=== PATIENT | female | born 2000 | race Caucasian/White ===

== ENCOUNTER 2024-01-30 07:39 | Emergency (ER) | payer SELFPAY ==
[2024-01-30] MEDS ORDERED: KETOROLAC 30 MG/ML INJ ONE (08:09)
--- NOTE | 2024-01-30 08:19 | RAD REPORT ---
EXAM DESCRIPTION: CT - Head Brain Wo Cont - 01/30/2024 8:11 am CLINICAL HISTORY: head injury COMPARISON: No comparisons TECHNIQUE: All CT scans are performed using dose optimization technique as appropriate and may inclu de automated exposure control or mA/KV adjustment according to patient size. FINDINGS: No intracranial hemorrhage, hydrocephalus or extra-axial fluid collection.No areas of brai n edema or evidence of midline shift. The paranasal sinuses and mastoids are clear. The calvarium is intact. IMPRESSION: No acute intracranial abnormality.
--- NOTE | 2024-01-30 08:36 | ER ---
Nurse's Notes [facility] Name: Elise Bhandari Age: 23 yrs Sex: Female : 2000 Arrival Date: 01/30/2024 Time: 07:39 Bed 13 Private MD: Diagnosis: Nose Pain;Headache Presentation: 01/29 07:49 Chief complaint: Patient states: DOVE IN SHALLOW POOL YESTERDAY AND HIT BRIDGE OF NOSE db ON FLOOR OF POOL. NOW HAS HEAD PAIN AND NOSE PAIN. Coronavirus screen: Client denies travel out of the [place] in the last 14 days. At this time, the client does not indicate any symptoms associated with coronavirus-19. Ebola Screen: Patient negative for fever greater than or equal to 101.5 degrees Fahrenheit, and additional compatible Ebola Virus Disease symptoms Patient denies exposure to infectious person. Patient denies travel to an Ebola-affected area in the 21 days before illness onset. No symptoms or risks identified at this time. Initial Sepsis Screen: Does the patient meet any 2 criteria? No. Patient's initial sepsis screen is negative. Does the patient have a suspected source of infection? No. Patient's initial sepsis screen is negative. Risk Assessment: Do you want to hurt yourself or someone else? Patient reports no desire to harm self or others. Onset of symptoms was January 29, 2024. 07:49 Method Of Arrival: Ambulatory db 07:49 Acuity: MARLENI 4 db Triage Assessment: 07:51 General: Appears in no apparent distress. comfortable, Behavior is calm, cooperative. db Pain: Complains of pain in head, face and nose. EENT: Nares are clear. Neuro: Level of Consciousness is awake, alert, obeys commands, Oriented to person, place, time, situation, Speech is normal, Facial symmetry appears normal. Cardiovascular: No deficits noted. Respiratory: Airway is patent Respiratory effort is even, unlabored, Respiratory pattern is regular, symmetrical. GI: No deficits noted. No signs and/or symptoms were reported involving the gastrointestinal system. : No deficits noted. No signs and/or symptoms were reported regarding the genitourinary system. Derm: No deficits noted. No signs and/or symptoms reported regarding the dermatologic system. Injury Description: Abrasion sustained to nose Bruise sustained to nose. 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 - Infectious Disease History:: Denies. - Social history:: Smoking status: Reported history of juuling and/or vaping. Screenin:53 [facility] ED Fall Risk Assessment (Adult) History of falling in the last 3 months, db including since admission No falls in past 3 months (0 pts) Confusion or Disorientation No (0 pts) Intoxicated or Sedated No (0 pts) Impaired Gait No (0 pts) Mobility Assist Device Used No (0 pt) Altered Elimination No (0 pt) Score/Fall Risk Level 0 - 2 = Low Risk Oriented to surroundings, Maintained a safe environment. Abuse screen: Denies threats or abuse. Denies injuries from another. Nutritional screening: No deficits noted. Tuberculosis screening: No symptoms or risk factors identified. Assessment: 07:52 Reassessment: SEE TRIAGE FOR INITIAL ASSESSMENT. db 08:43 Reassessment: Patient appears in no apparent distress at this time. Patient and/or db family updated on plan of care and expected duration. Pain level reassessed. Patient is alert, oriented x 3, equal unlabored respirations, skin warm/dry/pink. General: Appears in no apparent distress. comfortable, Behavior is calm, cooperative. Vital Signs: 07:49 BP 112 / 76; Pulse 84; Resp 16; Temp 99; Pulse Ox 100% ; Weight 86.18 kg; Height 5 ft. db 8 in. ; 07:49 Body Mass Index 28.89 (86.18 kg, 172.72 cm) db ED Course: 07:42 Patient arrived in ED. rg4 07:45 Richard Quintanilla MD is Attending Physician. ec2 07:49 Perlita Rivera, MACIEL is Primary Nurse. db 07:50 Triage completed. db 07:51 Arm band placed on Patient placed in an exam room. db 07:53 Patient has correct armband on for positive identification. Bed in low position. Call db light in reach. Side rails up X 1. Pulse ox on. NIBP on. Warm blanket given. 07:53 Provided Education on: PAIN CONTROL. db 08:13 CT Head Brain wo Cont In Process Unspecified. EDMS 08:14 Patient moved back from [place]. db 08:43 No provider procedures requiring assistance completed. Patient did not have IV access db during this emergency room visit. Administered Medications: 08:25 Drug: Ketorolac IM 30 mg IM once Route: IM; Site: right deltoid; db 08:43 Follow up: Response: No adverse reaction db Medication: 08:43 VIS not applicable for this client. db Outcome: 08:35 Discharge ordered by . ec2 08:43 Discharged to home ambulatory, with family, db 08:43 Condition: stable 08:43 Discharge instructions given to patient, Instructed on discharge instructions, follow up and referral plans. 08:44 Patient left the ED. db Signatures: Dispatcher [employer] Shelia Toscano rg4 Perlita Rivera RN RN Richard Osborn MD MD ec2 Corrections: (The following items were deleted from the chart) 07:51 07:49 Onset of symptoms was January 30, 2024 db db
--- NOTE | 2024-01-30 08:36 | EDPHYS ---
Physician Documentation [facility] Name: Elise Bhandari Age: 23 yrs Sex: Female : 2000 Arrival Date: 01/30/2024 Time: 07:39 Bed 13 Private MD: ED Physician Richard Quintanilla HPI: 01/29 07:54 This 23 yrs old Female presents to ER via Ambulatory with complaints of Nose ec2 Pain. 07:54 Patient arrives today for evaluation of nose pain and headache. Patient states that she ec2 dove into a shallow pool and subsequently injured her face. Patient with no LOC, no blood thinners, no neck pain. Patient reports no other traumas or injuries.. 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 - Infectious Disease History:: Denies. - Social history:: Smoking status: Reported history of juuling and/or vaping. ROS: 07:54 Constitutional: as per hpi ec2 Exam: 07:54 Constitutional: GEN: No acute distress HEENT: -Head: no deformities -Eyes: EOMI. ec2 Nose: Contusion noted to the bridge of the nose, no deformities, straight, no evidence of airway obstruction. CV: regular rate LUNGS: no respiratory distress ABD: non-tender SKIN: no wounds appreciated MSK: No C/T/L spine deformities RUE w/o bony deformity LUE w/o bony deformity RLE w/o bony deformity LLE w/o bony deformity NEURO: moves all extremities equally, GCS 15 (E4, V5, M6) Vital Signs: 07:49 BP 112 / 76; Pulse 84; Resp 16; Temp 99; Pulse Ox 100% ; Weight 86.18 kg; Height 5 ft. db 8 in. ; 07:49 Body Mass Index 28.89 (86.18 kg, 172.72 cm) db MDM: 07:51 Patient medically screened. ec2 07:54 Data reviewed: vital signs. ED course: Patient arrives today due to concern for facial ec2 pain after diving into the pool. Examination remarkable for MSK findings as above. Will obtain CT scan of the head to evaluate for intracranial injury as well as nasal bone fracture.. 08:34 ED course: CT scan shows no acute traumatic process. Will discharge home. Return ec2 precautions given. . 01/29 07:54 Order name: CT Head Brain wo Cont; Complete Time: 08:34 ec2 Administered Medications: 08:25 Drug: Ketorolac IM 30 mg IM once Route: IM; Site: right deltoid; db 08:43 Follow up: Response: No adverse reaction db Disposition Summary: 01/30/24 08:35 Discharge Ordered Notes: Location: Home ec2 Condition: Stable ec2 Diagnosis - Nose Pain ec2 - Headache ec2 Followup: ec2 - With: Private Physician - When: - Reason: Re-evaluation by your physician Discharge Instructions: - Discharge Summary Sheet ec2 - Head Injury, Adult, Gadf-[id number] ec2 Forms: - Work release form bd - Medication Reconciliation Form ec2 - Thank You Letter ec2 - Antibiotic Education ec2 - Prescription Opioid Use ec2 - Patient Portal Instructions ec2 - Leadership Thank You Letter ec2 Signatures: Dispatcher [employer] Perlita Jimenez, RN RN Richard Osborn MD MD ec2
[2024-01-30 17:04] VITALS: BP 112/76; TEMP 99; O2SAT 100
== END 2024-01-30 08:44 | disposition home or self-care (01) ==
LOC: ER 07:39
DX: J34.89 Other specified disorders of nose and nasal sinuses (principal); R51.9 Headache, unspecified
CPT/HCPCS: 70450; 96372; 99284

== ENCOUNTER 2025-06-16 22:25 | Emergency (ER) | payer SELFPAY ==
[2025-06-16] MEDS ORDERED: KETOROLAC 30 MG/ML INJ ONE (22:52)
[2025-06-16] MEDS ORDERED: HYDROCODONE/APAP 5/325 MG TAB ONE (22:52)
--- NOTE | 2025-06-17 00:33 | ER ---
Nurse's Notes [facility] Name: Elise Bhandari Age: 24 yrs Sex: Female : 2000 Arrival Date: 06/16/2025 Time: 22:25 Bed 20 Private MD: Diagnosis: Cervicalgia Presentation: 06/16 22:39 Chief complaint: Patient states: PT STATES SHE FELL APPROX 10 FLIGHT OF STAIRS ON br2 MONDAY. PT DENIES LOC. C/O NECK PAIN THAT RADIATES TO BILATERAL SHOULDERS AND MID BACK. Coronavirus screen: Client denies travel out of the [place] in the last 14 days. Ebola Screen: Patient denies exposure to infectious person. Initial Sepsis Screen: Does the patient meet any 2 criteria? No. Patient's initial sepsis screen is negative. Does the patient have a suspected source of infection? No. Patient's initial sepsis screen is negative. Risk Assessment: Do you want to hurt yourself or someone else? Patient reports no desire to harm self or others. Onset of symptoms was June 14, 2025. 22:39 Method Of Arrival: Ambulatory br2 22:39 Acuity: MARLENI 3 br2 Triage Assessment: 22:47 General: Appears uncomfortable, Behavior is calm, cooperative. Pain: Complains of pain br2 in back of neck and posterior chest Pain currently is 10 out of 10 on a pain scale. Historical: - Allergies: 22:47 No Known Allergies; br2 - PMHx: 22:47 None; br2 - PSHx: 22:47 HERNIA; br2 - Immunization history:: Adult Immunizations not up to date. - Infectious Disease History:: Denies. - Social history:: Smoking status: Reported history of juuling and/or vaping. Patient uses alcohol, occasionally. Patient/guardian denies using street drugs. Screenin:08 [facility] ED Fall Risk Assessment (Adult) History of falling in the last 3 months, kd3 including since admission No falls in past 3 months (0 pts) Confusion or Disorientation No (0 pts) Intoxicated or Sedated No (0 pts) Impaired Gait No (0 pts) Mobility Assist Device Used No (0 pt) Altered Elimination No (0 pt) Score/Fall Risk Level 0 - 2 = Low Risk Maintained a safe environment. Abuse screen: Denies threats or abuse. Denies injuries from another. Nutritional screening: No deficits noted. Tuberculosis screening: No symptoms or risk factors identified. Assessment: 23:07 General: Appears in no apparent distress. Behavior is calm, cooperative. Pain: kd3 Complains of pain in back of neck. Neuro: Level of Consciousness is awake, alert, obeys commands, Oriented to person, place, time, situation. Cardiovascular: Patient's skin is warm and dry. Respiratory: Airway is patent Trachea midline Respiratory effort is even, unlabored, Respiratory pattern is regular, symmetrical. Vital Signs: 22:39 BP 109 / 78; Pulse 80; Resp 18; Temp 97.1; Pulse Ox 100% on R/A; Weight 86.18 kg; br2 Height 5 ft. 8 in. ; Pain 10/10; 23:09 BP 110 / 81; Pulse 68; Resp 18; Pulse Ox 98% on R/A; kd3 06/17 00:01 BP 102 / 62; Pulse 57; Resp 18; Pulse Ox 99% on R/A; kd3 06/16 22:39 Body Mass Index 28.89 (86.18 kg, 172.72 cm) br2 06/16 22:39 Pain Scale: Adult br2 ED Course: 06/16 22:27 Patient arrived in ED. jj6 22:27 She[facility] Jacobson [facility]-C [facility]. kb 22:27 Arsenio Davis MD is Attending Physician. kb 22:35 Gale Neri, MACIEL is Primary Nurse. kd3 22:47 Triage completed. br2 22:53 CT Head C Spine In Process Unspecified. EDMS 23:08 Arm band placed on right wrist. kd3 23:08 Patient has correct armband on for positive identification. Provided Education on: kd3 Toradol injection . 06/17 00:58 No provider procedures requiring assistance completed. Patient did not have IV access kd3 during this emergency room visit. Administered Medications: 06/16 23:03 Drug: Ketorolac IM 30 mg IM once Route: IM; Site: right gluteus; kd3 23:03 Drug: HYDROcodone-acetaminophen PO 5 mg-325 mg 1 tabs PO once Route: PO; kd3 Medication: 23:09 VIS not applicable for this client. kd3 Outcome: 06/17 00:33 Discharge ordered by . kb 00:58 Discharged to home ambulatory, kd3 00:58 Condition: stable 00:58 Discharge instructions given to patient, Instructed on discharge instructions, follow up and referral plans. medication usage, Demonstrated understanding of instructions, follow-up care, medications, Prescriptions given X 2, 00:58 Patient left the ED. kd3 Signatures: Dispatcher [employer] EDMN Sheila Jacobson, ACUTE CARE ASSISTANT-C ACUTE CARE ASSISTANT-Manuela Alvarez jj6 Gale Neri RN RN kd3 Adrianne Barrera RN RN br2
--- NOTE | 2025-06-17 00:33 | EDPHYS ---
Physician Documentation [facility] Name: Elise Bhandari Age: 24 yrs Sex: Female : 2000 Arrival Date: 06/16/2025 Time: 22:25 Bed 20 Private MD: ED Physician Arsenio Davis HPI: 06/16 22:36 This 24 yrs old Female presents to ER via Unassigned with complaints of Neck Injury. kb 22:36 Pt is a 24 year old female who presents for neck pain and headache that started kb Monday after falling down a flight of stairs at work. Denies loc. States the pain in her neck has persisted. Denies any other injuries. . Historical: - Allergies: 22:47 No Known Allergies; br2 - PMHx: 22:47 None; br2 - PSHx: 22:47 HERNIA; br2 - Immunization history:: Adult Immunizations not up to date. - Infectious Disease History:: Denies. - Social history:: Smoking status: Reported history of juuling and/or vaping. Patient uses alcohol, occasionally. Patient/guardian denies using street drugs. ROS: 22:34 Constitutional: As per HPI kb Exam: 22:34 Constitutional: This is a well developed, well nourished patient who is awake, alert, kb and in no acute distress. Head/Face: Normocephalic, atraumatic. ENT: Moist Mucous membranes Cardiovascular: Regular rate Respiratory: Respirations even and unlabored. No increased work of breathing. Talking in full sentences Skin: Warm, dry with normal turgor. Normal color. MS/ Extremity: Pulses equal, no cyanosis. Neurovascular intact. Full, normal range of motion. Neuro: Awake and alert, GCS 15, oriented to person, place, time, and situation. 22:34 Neck: C-spine: vertebral tenderness, that is moderate, diffusely, Vital Signs: 22:39 BP 109 / 78; Pulse 80; Resp 18; Temp 97.1; Pulse Ox 100% on R/A; Weight 86.18 kg; br2 Height 5 ft. 8 in. ; Pain 10/10; 23:09 BP 110 / 81; Pulse 68; Resp 18; Pulse Ox 98% on R/A; kd3 06/17 00:01 BP 102 / 62; Pulse 57; Resp 18; Pulse Ox 99% on R/A; kd3 06/16 22:39 Body Mass Index 28.89 (86.18 kg, 172.72 cm) br2 06/16 22:39 Pain Scale: Adult br2 MDM: 06/16 22:27 Medical Screening Exam initiated kb 22:36 Differential diagnosis: fracture, strain, contusion, head injury. Data reviewed: vital kb signs, nurses notes. 06/17 00:32 Counseling: I had a detailed discussion with the patient and/or guardian regarding the kb historical points, exam findings, and any diagnostic results supporting the discharge/admit diagnosis, radiology results, the need for outpatient follow up, a family practitioner, to return to the emergency department if symptoms worsen or persist or if there are any questions or concerns that arise at home. 06/16 22:32 Order name: CT Head C Spine kb Administered Medications: 06/16 23:03 Drug: Ketorolac IM 30 mg IM once Route: IM; Site: right gluteus; kd3 23:03 Drug: HYDROcodone-acetaminophen PO 5 mg-325 mg 1 tabs PO once Route: PO; kd3 Disposition: 06/17 06:39 Co-signature as Attending Physician, Arsenio Davis MD I agree with the assessment sp4 and plan of care. I reviewed the patient's care provided by the Advanced Practice Provider and agree with the diagnosis and treatment plan. 06:39 Chart complete. sp4 Disposition Summary: 06/17/25 00:33 Discharge Ordered Notes: Location: Home kb Condition: Stable kb Diagnosis - Cervicalgia kb Followup: kb - With: Emergency Department - When: As needed - Reason: Worsening of condition Followup: kb - With: Private Physician - When: 2 - 3 days - Reason: Recheck today's complaints, Continuance of care, Re-evaluation by your physician Discharge Instructions: - Discharge Summary Sheet kb - Musculoskeletal Pain kb Forms: - Medication Reconciliation Form kb - Antibiotic Education kb - Prescription Opioid Use kb - Patient Portal Instructions kb - Leadership Thank You Letter kb Prescriptions: - Diclofenac Sodium 75 mg Oral tablet, delayed release (enteric coated) - take 1 tablet ORAL route 2 times per day As needed; 30 tablet; Refills: 0, kb Product Selection Permitted - orphenadrine citrate 100 mg Oral Tablet Sustained Release - take 1 tablet ORAL route 2 times per day As needed; 20 tablet; Refills: 0, kb Product Selection Permitted Signatures: Dispatcher [employer] EDSheila Judge, Gale Mazariegos RN RN kd3 Arsenio Davis MD MD sp4 Adrianne Barrera RN RN br2 Corrections: (The following items were deleted from the chart) 06/16 22:38 22:36 Pt is a 24 year old female who presents for neck pain and headache that started kb Monday after falling down a flight of stairs at work. Denies loc. States the pain in her neck has persisted.. kb
--- NOTE | 2025-06-17 01:32 | RAD REPORT ---
INDICATION: Head and neck pain COMPARISON: May 27, 2025 TECHNIQUE: Unenhanced CT of the head and cervical spine was performed per protocol. Multiplanar reconstructions were provided. Dose reduction techniques were utilized for this exam including automated exposure control, adjustmen ts to mA and/or kV according to patient's size, and the use of iterative reconstruction techniques. FINDINGS: CT Head: ACUTE INFARCTION: No. HEMORRHAGE: No. MASS: No. BRAIN: Moncao-white matter differentiation is maintained. VENTRICLES / EXTRA-AXIAL SPACES: No hydrocephalus. BONES: Unremarkable. PARANASAL SINUSES: Unremarkable. CT Cervical Spine: VERTEBRA: No acute fracture or malalignment. ALIGNMENT: Straightening of the normal cervical lordotic curvature as positioned. DISC SPACES: Mild degenerative disc disease at C5-C6 with right paracentral disc protrusion at this l evel. FACET JOINTS: Unremarkable. SPINAL CANAL: No high-grade bony canal stenosis. SOFT TISSUES: Unremarkable. OTHER: Lung apices are clear. IMPRESSION: CT Head: No acute intracranial abnormality. CT Cervical Spine: No acute osseous findings. Electronically signed by: Brennan Kuo DO 06/17/2025 12:16 AM CDT NR Due to temporary technical issues with the PACS/[employer]and[employer] reporting system, reports are being don d by the in-house radiologist without review as a courtesy to ensure prompt reporting the interpreting radiologist is fully responsible for the content of the report. Transcribed Date/Time: 06/17/2025 1:32 AM
[2025-06-17 08:40] VITALS: TEMP 97.1
[2025-06-17 08:43] VITALS: BP 102/62; O2SAT 99
== END 2025-06-17 00:58 | disposition home or self-care (01) ==
LOC: ER 22:25
DX: M54.2 Cervicalgia (principal); R51.9 Headache, unspecified
CPT/HCPCS: 70450; 72125

== ENCOUNTER 2025-08-02 14:13 | Emergency (ER) | payer SELFPAY ==
[2025-08-02 15:18] LABS: Urine Culture Reflex Order REFLEXED; Urine Microscopic Reflex YN NO UMIC
--- NOTE | 2025-08-02 15:32 | EDPHYS ---
Physician Documentation [facility] Name: Elise Bhandari Age: 24 yrs Sex: Female : 2000 Arrival Date: 08/02/2025 Time: 14:13 Bed 11 Private MD: ED Physician Iron Spear HPI: 08/02 14:36 This 24 yrs old Female presents to ER via Ambulatory with complaints of Nausea. sb4 14:36 Nausea x 2 days. Took a home test last night and was positive, wants sb4 confirmation today. States her last menstrual period was about 1 month ago. . Denies any burning with urination, pelvic cramping, vaginal discharge, spotting. 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 - Infectious Disease History:: Denies. - Social history:: Smoking status: Reported history of juuling and/or vaping. ROS: 14:36 Constitutional: Negative for fever, chills, and weight loss, sb4 14:36 Abdomen/GI: Positive for nausea, 14:36 All other systems are negative, Exam: 14:36 Constitutional: This is a well developed, well nourished patient who is awake, alert, sb4 and in no acute distress. Head/Face: Normocephalic, atraumatic. Eyes: Extra-ocular motions intact. Periorbital areas with no swelling, redness, or edema. ENT: Mucous membranes moist. Respiratory: No increased work of breathing, no retractions or nasal flaring. Skin: Warm, dry with normal turgor. Normal color with no rashes, no lesions, and no evidence of cellulitis. Vital Signs: 14:18 BP 129 / 75; Pulse 71; Resp 17; Temp 98.2; Pulse Ox 100% ; Weight 83.91 kg; Height 5 me1 ft. 8 in. ; 15:17 BP 104 / 63; Pulse 75; Resp 18; Pulse Ox 99% ; rg5 14:18 Body Mass Index 28.13 (83.91 kg, 172.72 cm) me1 MDM: 14:16 Medical Screening Exam initiated sb4 15:32 Data reviewed: vital signs, nurses notes, lab test result(s), and as a result, I will sb4 discharge patient. Counseling: I had a detailed discussion with the patient and/or guardian regarding the historical points, exam findings, and any diagnostic results supporting the discharge/admit diagnosis, lab results, the need for outpatient follow up, an OB/Gyne specialist, to return to the emergency department if symptoms worsen or persist or if there are any questions or concerns that arise at home. 08/02 14:28 Order name: Test, Urine; Complete Time: 15:20 sb4 08/02 14:28 Order name: UA Rfx Kg Cult if indicated; Complete Time: 15:36 sb4 08/02 15:38 Order name: Urine Culture EDMS Administered Medications: No medications were administered Disposition Summary: 08/02/25 15:32 Discharge Ordered Notes: Location: Home sb4 Problem: new sb4 Symptoms: are unchanged sb4 Condition: Stable sb4 Diagnosis - Encounter for test, result positive sb4 Followup: sb4 - With: Private Physician - When: 1 week - Reason: Further diagnostic work-up, Recheck today's complaints, Re-evaluation by your physician Discharge Instructions: - Discharge Summary Sheet sb4 - First Trimester of , Uqbt-ka-Cudy sb4 Forms: - Patient Portal Instructions sb4 - Leadership Thank You Letter sb4 Signatures: Dispatcher [employer] Morenita Moeller PAPadminiC PA-C sb4 aRdha Gomez, RN RN me1 Corrections: (The following items were deleted from the chart) 14:28 14:28 Test, Urine+UC.LAB.BRZ ordered. EDMS EDMS 14:28 14:28 UA Rfx Kg Cult if indicated+U.LAB.BRZ ordered. EDMS EDMS
--- NOTE | 2025-08-02 15:32 | ER ---
Nurse's Notes [facility] [place] Name: Elise Bhandari Age: 24 yrs Sex: Female : 2000 Arrival Date: 08/02/2025 Time: 14:13 Bed 11 Private MD: Diagnosis: Encounter for test, result positive Presentation: 08/02 14:18 Chief complaint: Patient states: had positive home test. LMP 07/02/25. Reports me1 nausea for 2-3 days. Would like confirmation of . Coronavirus screen: Vaccine status: Patient reports being unvaccinated. Ebola Screen: No symptoms or risks identified at this time. Initial Sepsis Screen: Does the patient meet any 2 criteria? No. Patient's initial sepsis screen is negative. Does the patient have a suspected source of infection? No. Patient's initial sepsis screen is negative. Risk Assessment: Do you want to hurt yourself or someone else? Patient reports no desire to harm self or others. Onset of symptoms was July 31, 2025. 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 - Infectious Disease History:: Denies. - Social history:: Smoking status: Reported history of juuling and/or vaping. Screenin:11 [facility] ED Fall Risk Assessment (Adult) History of falling in the last 3 months, rg5 including since admission No falls in past 3 months (0 pts) Confusion or Disorientation No (0 pts) Intoxicated or Sedated No (0 pts) Impaired Gait No (0 pts) Mobility Assist Device Used Yes (1 pt) Altered Elimination No (0 pt) Score/Fall Risk Level 0 - 2 = Low Risk Oriented to surroundings, Maintained a safe environment. 15:18 Abuse screen: Denies threats or abuse. Denies injuries from another. Nutritional rg5 screening: No deficits noted. Tuberculosis screening: No symptoms or risk factors identified. Assessment: 15:11 General: Appears in no apparent distress. Behavior is calm, cooperative, appropriate rg5 for age. Neuro: Level of Consciousness is awake, alert, obeys commands. GI: Abdomen is round non-distended, Reports nausea. :. EENT: No signs and/or symptoms were reported regarding the EENT system. Derm: Skin is intact, Skin is dry, Skin is normal, Skin temperature is warm. Musculoskeletal: Circulation, motion, and sensation intact. Range of motion: intact in all extremities. 15:18 Pain: Denies pain. Cardiovascular: Denies chest pain, Patient's skin is warm and dry. rg5 Rhythm is regular. Respiratory: Airway is patent Trachea midline Respiratory effort is even, unlabored, Respiratory pattern is regular, symmetrical. Vital Signs: 14:18 BP 129 / 75; Pulse 71; Resp 17; Temp 98.2; Pulse Ox 100% ; Weight 83.91 kg; Height 5 me1 ft. 8 in. ; 15:17 BP 104 / 63; Pulse 75; Resp 18; Pulse Ox 99% ; rg5 14:18 Body Mass Index 28.13 (83.91 kg, 172.72 cm) me1 ED Course: 14:15 Patient arrived in ED. ts1 14:16 Morenita Luu PA-C is PHCP. sb4 14:16 Iron Spear MD is Attending Physician. sb4 14:20 Triage completed. me1 14:20 Arm band placed on Patient placed in an exam room. me1 14:43 Raymond Taveras, MACIEL is Primary Nurse. rg5 15:11 Patient has correct armband on for positive identification. Bed in low position. Call rg5 light in reach. Side rails up X 1. Door closed. Noise minimized. Warm blanket given. 15:11 No provider procedures requiring assistance completed. Patient did not have IV access rg5 during this emergency room visit. Administered Medications: No medications were administered Medication: 15:18 VIS not applicable for this client. rg5 Outcome: 15:32 Discharge ordered by MD. sb4 15:41 Discharged to home ambulatory, rg5 15:41 Condition: stable 15:41 Discharge instructions given to patient, Instructed on discharge instructions, follow up and referral plans. Demonstrated understanding of instructions, 15:42 Patient left the ED. rg5 Signatures: Morenita Luu PA-C PA-C sb4 Lore Rodriguez PAS PAS ts1 Radha Gomez, RN RN me1 Raymond Taveras RN RN rg5
[2025-08-02 16:20] VITALS: TEMP 98.2
[2025-08-02 16:21] VITALS: BP 104/63; O2SAT 99
== END 2025-08-02 15:42 | disposition home or self-care (01) ==
LOC: ER 14:13
DX: Z32.01 Encounter for pregnancy test, result positive (principal)
CPT/HCPCS: 81003; 81025; 87086; 87088; 99282

== ENCOUNTER 2025-08-08 04:36 | Emergency (ER) | payer SELFPAY ==
[2025-08-08] MEDS ORDERED: ACETAMINOPHEN 500 MG TAB ONE (05:33)
[2025-08-08 05:44] LABS: Absolute Lymphocytes (CBC) 1.9 K/uL (0.7-4.9); Hematocrit 39.0 % (36.0-45.0); Hemoglobin 13.4 g/dL (12.0-15.0); MCH 31.2 pg (27.0-35.0); MCHC 34.3 g/dL (32.0-36.0); MCV 90.9 fL (80-100); MPV 8.4 fL (7.6-11.3); Nucleated RBC Absolute Count 0.0 (0-0); Nucleated Red Blood Cells % 0.1 % (0-0); RBC Red Blood Cell Count 4.29 M/uL (3.86-4.86); White Blood Count 6.10 thou/uL (4.3-10.9)
[2025-08-08 05:49] LABS: Urine Culture Reflex Order REFLEXED; Urine Microscopic Reflex YN NO UMIC
[2025-08-08 06:00] LABS: ALT/SGPT 29.0 U/L (13-56); AST/SGOT 24.0 U/L (15-37); Albumin 3.6 g/dL (3.4-5.0); Albumin/Globulin Ratio 1.0 (1.1-1.8); Alkaline Phosphatase 44.0 U/L (45-117); Anion Gap 10.7 mEq/L (5.0-15.0); BUN Blood Urea Nitrogen 12.0 mg/dL (7-18); Globulin 3.6 g/dL (2.3-3.5); Glucose Level 90.0 mg/dL (74-106); Lipase 30.0 U/L (13-75); Potassium 3.7 mEq/L (3.5-5.1)
--- NOTE | 2025-08-08 07:35 | ER ---
Nurse's Notes [facility] [place] Name: Elise Bhandari Age: 24 yrs Sex: Female : 2000 Arrival Date: 08/08/2025 Time: 04:36 Bed 18 Private MD: Diagnosis: Less than 8 weeks gestation of Presentation: 08/08 05:17 Chief complaint: Patient states: Pelvic pain/ . Coronavirus screen: Vaccine at6 status: Patient reports receiving the 2nd dose of the covid vaccine. Client denies travel out of the [place] in the last 14 days. Ebola Screen: Patient denies exposure to infectious person. Patient denies travel to an Ebola-affected area in the 21 days before illness onset. No symptoms or risks identified at this time. Initial Sepsis Screen: Does the patient meet any 2 criteria? No. Patient's initial sepsis screen is negative. Does the patient have a suspected source of infection? No. Patient's initial sepsis screen is negative. Risk Assessment: Do you want to hurt yourself or someone else? Patient reports no desire to harm self or others. Note Patient comes in for lower abdominal pain thata radiates to the L side. Patient states that LMP was sept. 1. confirmed her previously, this is first . Pain currently 2/10. Provider at bedside during assessment. Onset of symptoms was August 06, 2025. Care prior to arrival: None. Activity prior to arrival: None. Mechanism of Injury: No Mechanism of Injury. Transition of care: patient was not received from another setting of care. 05:17 Method Of Arrival: Ambulatory at6 05:17 Acuity: MARLENI 3 at6 Triage Assessment: 05:22 General: Appears in no apparent distress. Behavior is calm, cooperative, appropriate at6 for age. Pain: Complains of pain in abdomen and pelvis Pain radiates to abdomen Pain currently is 2 out of 10 on a pain scale. Quality of pain is described as crampy, Pain began 2-3 days ago. Alleviated by nothing. Aggravated by Noted to be Also complains of nausea. EENT: No deficits noted. Neuro: No deficits noted. Cardiovascular: No deficits noted. Respiratory: No deficits noted. GI: Abdomen is round Last BM was August 07, 2025. Abdomen is tender to palpation in suprapubic area Reports lower abdominal pain, nausea, Parent/caregiver reports the patient having. : Patient is sexually active. Derm: No deficits noted. Musculoskeletal: No deficits noted. 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 Last tetanus immunization: unknown, Pneumococcal vaccine status is unknown, Flu vaccine is not up to date. Hepatitis A vaccine is not up to date Hepatitis B vaccine is not up to date Meningococcal vaccine status is unknown. Vaccine Information Sheet provided. - Infectious Disease History:: Denies. - Social history:: Patient/guardian denies using street drugs, IV drugs, caffeine, over the counter diet medications, tobacco products, Smoking status: Patient denies any tobacco usage or history of. - Family history:: not pertinent. - Code Status:: Full code. Screenin:27 [facility] ED Fall Risk Assessment (Adult) History of falling in the last 3 months, at6 including since admission No falls in past 3 months (0 pts) Confusion or Disorientation No (0 pts) Intoxicated or Sedated No (0 pts) Impaired Gait No (0 pts) Mobility Assist Device Used No (0 pt) Altered Elimination No (0 pt) Score/Fall Risk Level 0 - 2 = Low Risk Oriented to surroundings, Maintained a safe environment, Educated pt \T\ family on fall prevention, incl call for assistance when getting out of bed. Abuse screen: Denies threats or abuse. Nutritional screening: No deficits noted. Tuberculosis screening: No symptoms or risk factors identified. Assessment: 05:36 Reassessment: Patient ambulated to the bathroom independently at this time to provide at6 urine sample. 06:09 Reassessment: Patient appears in no apparent distress at this time. No changes from at6 previously documented assessment. 07:30 Reassessment: Patient appears in no apparent distress at this time. No changes from af3 previously documented assessment. Patient and/or family updated on plan of care and expected duration. Pain level reassessed. Vital Signs: 05:17 BP 116 / 66; Pulse 70; Resp 16; Temp 98.1; Pulse Ox 100% on R/A; at6 05:24 BP 116 / 66; Pulse 70; Resp 16; Temp 98.1; Pulse Ox 100% on R/A; Weight 83.91 kg; at6 Height 5 ft. 9 in. ; 06:10 BP 107 / 65; Pulse 69; Resp 18; Pulse Ox 98% on R/A; at6 06:55 BP 106 / 57; Pulse 56; Resp 16; Pulse Ox 98% on R/A; at6 06:56 BP 108 / 72; Pulse 62; at6 05:24 Body Mass Index 27.32 (83.91 kg, 175.26 cm) at6 ED Course: 04:38 Patient arrived in ED. mr 04:52 Jose Colon DO is Attending Physician. tt7 05:17 Kaela Colon, RN is Primary Nurse. at6 05:20 Triage completed. at6 05:26 Arm band placed on right wrist. Patient placed in an exam room. at6 05:27 Inserted saline lock: 20 gauge in right antecubital area, using aseptic technique. at6 05:28 Patient has correct armband on for positive identification. Bed in low position. Call at6 light in reach. Adult w/ patient. Provided Education on: care. 06:55 No provider procedures requiring assistance completed. at6 07:14 Transvaginal OB In Process Unspecified. EDRI 07:31 Attending Physician role handed off by Jose Colon DO [facility] 07:31 Ridge Norman MD is Attending Physician. dameon 08:05 IV discontinued, intact, bleeding controlled, No redness/swelling at site. Pressure af3 dressing applied. Administered Medications: 05:36 Drug: Acetaminophen PO 1000 mg PO once Route: PO; at6 07:15 Follow up: Response: No adverse reaction af3 Medication: 05:28 VIS not applicable for this client. at6 Outcome: 05:28 Condition: stable at6 07:34 Discharge ordered by . dameon 08:04 Discharged to home ambulatory, with family, af3 08:04 Condition: stable 08:04 Discharge instructions given to patient, family, Instructed on discharge instructions, follow up and referral plans. Demonstrated understanding of instructions, follow-up care, 08:05 Patient left the ED. af3 Signatures: Dispatcher [employer] EDRI Ridge Norman MD MD cha Rivera, Mary, Reg Reg Dora Curtis RN RN af3 Isaiah, Jose, DO DO tt7 Kaela Colon, MACIEL RN at6
--- NOTE | 2025-08-08 07:35 | EDPHYS ---
Physician Documentation [facility] Name: Elise Bhandari Age: 24 yrs Sex: Female : 2000 Arrival Date: 08/08/2025 Time: 04:36 Bed 18 Private MD: ED Physician Ridge Norman HPI: 08/08 05:46 This 24 yrs old Female presents to ER via Ambulatory with complaints of , tt7 Pelvic Pain. 05:46 Patient reports 2 to 3 days of intermittent crampy pelvic pain that radiates to the tt7 left side, no exacerbating or alleviating factors, pain is mild, reported as 2/10 in severity, associated nausea but no vomiting, denies fever, denies vaginal bleeding, denies vaginal discharge, denies dysuria. Patient reports that she estimates she is approximately 5 weeks , , no care, no first trimester ultrasound. She has no significant past medical history. 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 Last tetanus immunization: unknown, Pneumococcal vaccine status is unknown, Flu vaccine is not up to date. Hepatitis A vaccine is not up to date Hepatitis B vaccine is not up to date Meningococcal vaccine status is unknown. Vaccine Information Sheet provided. - Infectious Disease History:: Denies. - Social history:: Patient/guardian denies using street drugs, IV drugs, caffeine, over the counter diet medications, tobacco products, Smoking status: Patient denies any tobacco usage or history of. - Family history:: not pertinent. - Code Status:: Full code. ROS: 05:48 Constitutional: negative for fever. Cardiovascular: negative for chest pain. tt7 Respiratory: negative for shortness of breath. MS/Extremity: negative for injury and deformity. Skin: negative for rash. Neuro: negative for focal weakness. 05:48 Abdomen/GI: Positive for nausea, abdominal cramps, Negative for vomiting, diarrhea, 05:48 : Positive for pelvic pain, Negative for hematuria, burning with urination, vaginal bleeding, vaginal discharge, Exam: 05:48 Constitutional: vital signs reviewed, well appearing. Head/Face: normocephalic, tt7 atraumatic. Eyes: no conjunctival injection, anicteric sclerae. ENT: mucus membranes moist. Neck: trachea midline, no JVD, no meningismus. Chest/axilla: normal chest wall appearance and motion, nontender, no crepitus. Cardiovascular: regular rate and rhythm, no murmurs, no rubs, no lower extremity edema. Respiratory: normal respiratory effort, no accessory muscle use, lungs CTAB. Abdomen/GI: soft, nondistended, nontender, no guarding or rebound, negative Mistry's sign, no McBurney point tenderness. Back: normal ROM. Skin: warm, dry, intact, normal turgor, normal color, no rash. MS/ Extremity: normal ROM of extremities, no gross deformities. Neuro: alert and oriented with appropriate mental status, normal speech, follows commands, no focal neurologic deficits. Psych: appropriate mood and affect. Vital Signs: 05:17 BP 116 / 66; Pulse 70; Resp 16; Temp 98.1; Pulse Ox 100% on R/A; at6 05:24 BP 116 / 66; Pulse 70; Resp 16; Temp 98.1; Pulse Ox 100% on R/A; Weight 83.91 kg; at6 Height 5 ft. 9 in. ; 06:10 BP 107 / 65; Pulse 69; Resp 18; Pulse Ox 98% on R/A; at6 06:55 BP 106 / 57; Pulse 56; Resp 16; Pulse Ox 98% on R/A; at6 06:56 BP 108 / 72; Pulse 62; at6 05:24 Body Mass Index 27.32 (83.91 kg, 175.26 cm) at6 MDM: 04:52 Medical Screening Exam initiated tt7 05:49 Differential Diagnosis Pancreatitis, ectopic , acute cystitis, nonspecific tt7 abdominal pain, gastritis. Data reviewed: vital signs, nurses notes, lab test result(s), radiologic studies. 06:15 ED course: Laboratory studies are reassuring, no acute abnormalities, urinalysis tt7 without evidence of infection or bacteriuria, urine culture ordered, pending results of obstetric ultrasound. 07:17 ED course: Patient care signed out to Dr. Norman at shift change at 700 pending tt7 results of obstetric ultrasound. 08/08 05:25 Order name: CBC with Diff; Complete Time: 05:56 tt7 08/08 05:25 Order name: CMP; Complete Time: 06:14 tt7 08/08 05:25 Order name: Lipase; Complete Time: 06:14 tt7 08/08 05:25 Order name: Test, Serum; Complete Time: 06:14 tt7 08/08 05:25 Order name: UA Rfx Kg Cult if indicated; Complete Time: 05:56 tt7 08/08 05:55 Order name: Urine Culture EDMS 08/08 06:47 Order name: Transvaginal OB EDMS 08/08 05:25 Order name: IV Saline Lock; Complete Time: 05:31 tt7 08/08 05:25 Order name: Labs collected and sent; Complete Time: 05:31 tt7 Administered Medications: 05:36 Drug: Acetaminophen PO 1000 mg PO once Route: PO; at6 07:15 Follow up: Response: No adverse reaction af3 Disposition: 07:17 Co-signature as Attending Physician, Jose Colon DO. tt7 Disposition Summary: 08/08/25 07:34 Discharge Ordered Notes: Location: Home dameon Problem: new dameon Symptoms: have improved dameon Condition: Stable dameon Diagnosis - Less than 8 weeks gestation of dameon Followup: dameon - With: Private Physician - When: 1 - 2 days - Reason: Recheck today's complaints, Re-evaluation by your physician Discharge Instructions: - Discharge Summary Sheet dameon - Care dameon - First Trimester of , [id number] dameon - First Trimester of dameon Forms: - Medication Reconciliation Form dameon - Antibiotic Education dameon - Prescription Opioid Use dameon - Patient Portal Instructions dameon - Leadership Thank You Letter dameon Signatures: Dispatcher [employer] EDRidge Salinas MD MD cha Tarleton, Travis, DO DO tt7 Kaela Colon RN RN at6 Dora Shipman RN af3 Corrections: (The following items were deleted from the chart) 05:48 05:46 . tt7 tt7 06:47 05:26 OB Limited+US.RAD.BRZ ordered. EDPA EDMS
--- NOTE | 2025-08-08 07:38 | RAD REPORT ---
EXAM: Transvaginal OB HISTORY: ABD CRAMPING, COMPARISON: None TECHNIQUE: Multiple grayscale and color Doppler images were obtained in a transvaginal pelvic ultraso und. Spectral analysis of the Doppler waveforms of the ovaries were performed. FINDINGS: UTERUS: There is an intrauterine gestational sac. Gestational sac identified. No pole. Gestatio nal sac measures 8 mm consistent with age of 5 weeks 3 day. No evidence of subchorionic hemorrhage. No free fluid is seen in the pelvis. RIGHT OVARY: Normal flow without focal mass. LEFT OVARY: Normal flow without focal mass. Corpus luteal cyst in the left ovary. IMPRESSION: Gestational sac yolk sac identified. No pole identified likely due to early dates. Short-term f ollow-up could confirm normal IUP. Bilateral ovarian blood flow.
[2025-08-08 08:14] VITALS: TEMP 98.1
[2025-08-08 08:18] VITALS: O2SAT 98
[2025-08-08 08:21] VITALS: BP 108/72
== END 2025-08-08 08:05 | disposition home or self-care (01) ==
LOC: ER 04:36
DX: O26.891 Other specified pregnancy related conditions, first trimester (principal); Z3A.01 Less than 8 weeks gestation of pregnancy
CPT/HCPCS: 36415; 76817; 80053; 81003; 83690; 84703; 85025; 87086; 87088; 99284